=== PATIENT | male | born 1965 | race Caucasian/White ===

== ENCOUNTER → 2019-03-30 | Day surgery (SDC) | payer OTHER ==
[~2019-03-30] MED LIST: ACETAMINOPHEN 1000 MG/100 ML 100 ML IV ONE; ATORVASTATIN CA10 MG PO; ATORVASTATIN CA40 MG PO; BUPIVACAINE 0.25%/EPI 30ML SDV INJ ONE; CEFOXITIN 1GM/ D5W 50ML 50 ML IV ONE; CEFOXITIN SOD 1 GM VIAL ONE; DEXAMETHASONE SOD PHOS INJ 4 MG/ML VIAL ONE; FENTANYL CITRATE/PF 100MCG/2 ML INJ ONE; KETOROLAC TROMETHAMINE 30 MG/ML VIAL ONE; LIDOCAINE HCL 2% 30 ML TUBE ONE; LIDOCAINE HCL 2% LOCAL INJ 5 ML SDV VIAL INJ ONE; LISINOPRIL40 MG PO; LISINOPRIL5 MG PO; MIDAZOLAM HCL 2 MG/2 ML VIAL ONE; MULTIVITAMINS1 EAC7 PO; ONDANSETRON HCL INJ 2MG/ML 2ML 2 MG/ML VIAL ONE; PROPOFOL IV EMULSION 10 MG/ML 20 ML VIAL ONE; SEVOFLURANE INHAL SOLN 250 ML PEN BTL ONE
[2019-03-30 09:06] LABS: BASOPHILS % 0.4 % (0.0-1.0); EOSINOPHILS # (AUTO) 0.1 (0.0-0.4); EOSINOPHILS % 0.4 % (0.0-6.0); HEMATOCRIT 48.9 % (38.2-49.6); HEMOGLOBIN 16.7 g/dL (14.0-18.0); LYMPHOCYTES # (AUTO) 3.5 (1.0-3.2); LYMPHOCYTES % 30.7 % (18.0-39.1); MEAN CORPUSCULAR HEMOGLOBIN 30.5 pg (28-32); MEAN CORPUSCULAR HGB CONC 34.2 g/dL (31-35); MEAN CORPUSCULAR VOLUME 89.2 fL (81-99); MONOCYTES # (AUTO) 0.8 (0.2-0.8); MONOCYTES % 6.9 % (4.4-11.3); NEUTROPHILS % 61.3 % (38.7-80.0); PLATELET COUNT 271 x10e3/uL (140-360); RED BLOOD COUNT 5.48 x10e6/uL (4.3-5.7); RED CELL DISTRIBUTION WIDTH 11.9 % (11.7-14.4)
[2019-03-30 09:31] LABS: ALANINE AMINOTRANSFERASE 31 IU/L (0-55); ALBUMIN 4.3 g/dL (3.5-5.0); ALBUMIN/GLOBULIN RATIO 1.4 (0.8-2.0); ALKALINE PHOSPHATASE 108 IU/L (40-150); ANION GAP 13.2 mmol/L (8-16); BLOOD UREA NITROGEN 10 mg/dL (7-26); BUN/CREATININE RATIO 10 (6-25); CALCIUM 9.5 mg/dL (8.4-10.2); CARBON DIOXIDE 26 mmol/L (22-29); CHLORIDE 103 mmol/L (98-107); CREATININE, SERUM 1.05 mg/dL (0.72-1.25); EST GLOMERULAR FILTRATION RATE > 60 ML/MIN (60-); GLUCOSE 104 mg/dL (74-118); POTASSIUM 4.2 mmol/L (3.5-5.1); SODIUM 138 mmol/L (136-145)
[2019-03-30 14:20] VITALS: BP 114/78
--- NOTE | 2019-03-30 14:39 | Operative Report ---
DATE OF PROCEDURE: 03/30/2019 SURGEON: Jerad Montana MD PREOPERATIVE DIAGNOSIS: Thrombosed external hemorrhoid at 9 o'clock. POSTOPERATIVE DIAGNOSIS: Thrombosed external hemorrhoid at 9 o'clock. PROCEDURE PERFORMED: Hemorrhoidectomy at 9 o'clock in the lithotomy position. ANESTHESIA: General. ESTIMATED BLOOD LOSS: Minimal. DRAINS: None. COMPLICATIONS: None. INDICATIONS: A 53-year-old male admitted for hemorrhoidectomy and developed bleeding at the site of the thrombosed external hemorrhoid. There was no pain. INTRAOPERATIVE FINDINGS: Thrombosed, bleeding external hemorrhoid at 9 o'clock in the lithotomy position. Hemorrhoidectomy was then performed. The patient will be referred after he is here for colonoscopy by GI. DESCRIPTION OF PROCEDURE: With the patient lying on the operative table in the supine position after administration of general anesthesia, he was then placed in the lithotomy position. The buttocks taped apart. Given antibiotics in the form of Mefoxin 2 g IV. After prepping and draping him with Betadine, an anal block was performed using 0.25% Marcaine with epinephrine. An anoscope was performed and then the anal canal was packed with a Betadine sponge to isolate the field. An apical stitch was then placed using 0-chromic, and then an elliptical incision was made on the mucosal covering the hemorrhoids, but not including the anoderm. Then, the mucosa as well as the clot were completely eventrated. Then, the mucosa was approximated using interrupted 2-0 chromic. The anoderm was left open. The distal part of the mucosa, where it was joined in the anoderm, was left open to prevent any re-clotting and allow drainage as needed. The anal canal was packed with Gelfoam impregnated with 2% xylocaine jelly. The Betadine sponge was removed prior to that at the end of the procedure. The patient tolerated the procedure well and taken to the recovery room in stable condition. MD RAO Edwards/COURTNEY /[id number]
== END | disposition home or self-care (01) ==
LOC: OR 08:16
PROVIDERS: ATTEND Surgery
DX: K64.5 Perianal venous thrombosis (principal); I10 Essential (primary) hypertension; E78.00 Pure hypercholesterolemia, unspecified; Z68.41 Body mass index [BMI] 40.0-44.9, adult
CPT/HCPCS: 36415; 46320; 80053; 85025; 88304; 93005; J0131; J0694; J1100; J1885; J2001; J2250; J2405; J2704; J3010